=== PATIENT | male | born 1950 | race Caucasian/White ===

== ENCOUNTER → 2018-03-17 | Outpatient (CLI) | payer OTHER, BC ==
--- NOTE | 2018-03-17 09:03 | DIAGNOSTIC IMAGING REPORT ---
HEAD CT NONCONTRAST CT DOSE: 788.63 mGycm HISTORY: HEADACHE TECHNIQUE: Multiaxial CT images of the head were performed without the use of intravenous contrast. Automated exposure control was utilized for this study. A dose lowering technique was utilized adhering to the principles of ALARA. Comparison: None. Findings: Mild mucosal thickening within the paranasal sinuses. No fluid levels. The mastoid air cells are clear. The calvarium and skull base are intact. The ventricles and sulci are within normal limits. There is no mass, hematoma, midline shift, or acute infarct. Impression: No acute intracranial abnormality. Electronically signed by: Jabier Verma M.D. 03/17/2018 9:01 AM Dictated Date/Time: 03/17/2018 8:51 AM
== END | disposition home or self-care (01) ==
LOC: C.CTS 08:40
PROVIDERS: ATTEND Family Medicine
DX: R51 Headache (principal)